=== PATIENT | male | born 1965 | race African-American/Black ===

== ENCOUNTER 2016-12-22 08:47 | Emergency (ER) | payer OTHER, MEDICARE ==
--- NOTE | 2016-12-22 09:36 | ER Document Report ---
ED Medical Screen (RME) - General Chief Complaint: Leg Swelling Stated Complaint: LEG PAIN Time Seen by Provider: 12/22/16 09:34 Mode of Arrival: Ambulatory Information source: Patient Notes: This is a 51-year-old male with a history of CHF, HTN, Gout, A. fib and AICD who is new to the area and presents with bilateral lower extremity pain, from the knees down. He thinks the pain may have started on the RLE, but now it is bilateral. States that this pain is been worsening for the past 1-2 weeks. He is uncertain if this might be gout or circulation problem. Denies any chest pain or shortness of breath. He has had leg swelling. Denies fevers or chills. He is on Eliquis. I have greeted and performed a rapid initial assessment of this patient. A comprehensive ED assessment and evaluation of the patient, analysis of test results and completion of the medical decision making process will be conducted by additional ED providers. TRAVEL OUTSIDE OF THE [place] IN LAST 30 DAYS: No - Related Data Allergies/Adverse Reactions: No Known Allergies Allergy (Unverified 12/22/16 09:29) Past Medical History Renal/ Medical History: Denies: Hx Peritoneal Dialysis Physical Exam - Vital signs Vitals: Temp Pulse Resp BP Pulse Ox 97.5 F 95 20 102/86 H 97 12/22/16 09:04 12/22/16 09:04 12/22/16 09:04 12/22/16 09:04 12/22/16 09:04 - General General appearance: Appears well In distress: None - Cardiovascular Rhythm: Irregularly irregular Course - Vital Signs Vital signs: Temp Pulse Resp BP Pulse Ox 97.5 F 95 20 102/86 H 97 12/22/16 09:04 12/22/16 09:04 12/22/16 09:04 12/22/16 09:04 12/22/16 09:04
[2016-12-22 10:18] LABS: ABSOLUTE BASOPHILS # (AUTO) 0.1 10^3/uL (0.0-0.2); ABSOLUTE EOSINOPHILS # (AUTO) 0.2 10^3/uL (0.0-0.6); ABSOLUTE MONOCYTES (AUTO) 0.7 10^3/uL (0.1-1.4); ABSOLUTE NEUT (AUTO) 3.1 10^3/uL (1.7-8.2); EOSINOPHILS % (AUTO) 3.4 % (0-6); HEMATOCRIT 51.1 % (37.9-51.0); HEMOGLOBIN 16.7 g/dL (13.5-17.0); MEAN CORPUSCULAR HEMOGLOBIN 29.3 pg (27.0-33.4); MEAN CORPUSCULAR HGB CONC 32.7 g/dL (32.0-36.0); MEAN CORPUSCULAR VOLUME 90 fl (80-97); MONOCYTES % (AUTO) 11.6 % (3-13); RED BLOOD COUNT 5.69 10^6/uL (4.35-5.55); RED CELL DISTRIBUTION WIDTH 14.7 % (11.5-14.0)
[2016-12-22 10:22] LABS: PROTHROMBIN TIME 13.7 SEC (11.4-15.4)
[2016-12-22 10:23] LABS: PARTIAL THROMBOPLASTIN TIME 30.1 SEC (23.5-35.8)
[2016-12-22 10:26] LABS: ALANINE AMINOTRANSFERASE 34 U/L (21-72); ALBUMIN 4.4 g/dL (3.5-5.0); ALKALINE PHOSPHATASE 58 U/L (38-126); ANION GAP 16 (5-19); ASPARTATE AMINO TRANSFERASE 20 U/L (17-59); BILIRUBIN,DIRECT 0.3 mg/dL (0.0-0.4); BILIRUBIN,TOTAL 1.6 mg/dL (0.2-1.3); BLOOD UREA NITROGEN 32 mg/dL (7-20); CALCIUM 9.8 mg/dL (8.4-10.2); CARBON DIOXIDE 26 mmol/L (22-30); CHLORIDE 103 mmol/L (98-107); GLUCOSE 97 mg/dL (75-110); SODIUM 144.5 mmol/L (137-145); TOTAL PROTEIN 7.5 g/dL (6.3-8.2)
--- NOTE | 2016-12-22 10:32 | ER Document Report ---
ED Extremity Problem, Lower - General Chief Complaint: Leg Swelling Stated Complaint: LEG PAIN Time Seen by Provider: 12/22/16 09:34 Mode of Arrival: Ambulatory Notes: Patient is complaining of tightness in both of his lower legs. Although, patient says his primary problem this evening involves his knees, both of which are swollen with apparent effusions, the left worse than the right. Patient says he has a history of gout but knows that is not the problem today because he has not had symptoms like he is currently having until the past couple of weeks. He describes constant discomfort. thinks he has got some bruises on the inner aspects of his left ankle and also more on his right foot. Patient denies any recent injuries. Denies nausea or vomiting or diarrhea. Denies fevers. Patient has a history of gout and is supposed to be taking allopurinol 400 mg twice a day, but says he has not really been taking it close to what he should be taking. In addition, he has colchicine which he takes when needed and also has prednisone that he takes when needed for flaring of his gout. TRAVEL OUTSIDE OF THE [place] IN LAST 30 DAYS: No - Related Data Allergies/Adverse Reactions: No Known Allergies Allergy (Unverified 12/22/16 09:29) Home Medications: Current Home Medications Allopurinol [Zyloprim 100 mg Tablet] 400 mg PO BID 12/22/16 [History] Apixaban [Eliquis 5 mg Tablet] 5 mg PO BID 12/22/16 [History] Atorvastatin Calcium [Lipitor 80 mg Tablet] 80 mg PO QHS 12/22/16 [History] Bumetanide [Bumex 2 mg Tablet] 3 mg PO BID 12/22/16 [History] Buspirone HCl [Buspar 10 mg Tablet] 10 mg PO Q8H PRN 12/22/16 [History] Digoxin [Lanoxin 0.125 mg Tablet] 0.125 mg PO DAILY 12/22/16 [History] Docusate Sodium 100 mg PO BID 12/22/16 [History] Loratadine [Claritin] 10 mg PO DAILY PRN 12/22/16 [History] Melatonin [Melatin] 3 mg PO DAILY 12/22/16 [History] Methimazole [Northyx] 15 mg PO DAILY 12/22/16 [History] Metoprolol Succinate [Toprol Xl] 100 mg PO BID 12/22/16 [History] Pantoprazole Sodium [Protonix] 40 mg PO DAILY 12/22/16 [History] Tamsulosin HCl 1 tab PO DAILY 12/22/16 [History] Trazodone HCl 50 mg PO DAILY PRN 12/22/16 [History] Past Medical History - General Information source: Patient - Social History Smoking Status: Current Every Day Smoker Family History: Reviewed & Not Pertinent Patient has suicidal ideation: No Patient has homicidal ideation: No - Past Medical History Cardiac Medical History: Reports: Hx Atrial Fibrillation, Other - Defibrillator Musculoskeltal Medical History: Reports Hx Gout Review of Systems - Review of Systems Notes: REVIEW OF SYSTEMS: CONSTITUTIONAL : Denies fever. EENT: Denies eye, ear, nose or mouth or throat pain or other symptoms. CARDIOVASCULAR: Denies chest pain. RESPIRATORY: Denies cough, chest congestion, or shortness of breath. GASTROINTESTINAL: Denies abdominal pain or nausea, vomiting, or diarrhea. GENITOURINARY: Denies difficulty or painful urinating, urinary frequency, blood in urine. MUSCULOSKELETAL: Denies back or neck pain. See HPI SKIN: see HPI. NEUROLOGICAL: Denies LOC or altered mental status. Denies headache. Denies sensory loss or motor deficits. ALL OTHER SYSTEMS REVIEWED AND NEGATIVE. Physical Exam - Vital signs Vitals: Temp Pulse Resp BP Pulse Ox 97.5 F 95 20 102/86 H 97 12/22/16 09:04 12/22/16 09:04 12/22/16 09:04 12/22/16 09:04 12/22/16 09:04 Interpretation: Normal - Notes Notes: PHYSICAL EXAMINATION: GENERAL: Well-appearing, in no acute distress. Signs are all normal. HEAD: Atraumatic, normocephalic. NECK: Normal range of motion, supple. LUNGS: Breath sounds clear and equal bilaterally. HEART: Regular rate and rhythm without murmurs. ABDOMEN: Soft, nontender. No guarding or rebound. BACK: No tenderness throughout entire back. EXTREMITIES: Normal range of motion without pain. Both knees have effusions present. Left is worse than the right. Neither of them are tense or painful to press or move so I do not think he requires either of them being aspirated. NEUROLOGICAL: Normal speech, normal gait. Normal sensory, motor, and reflex exams. Awake, alert, and oriented x3. Cranial nerves normal. PSYCH: Normal mood, normal affect. SKIN: Warm, dry, no rashes. Course - Re-evaluation Re-evalutation: 12/22/16 20:38 A lengthy discussion with the patient informing him that he needed to start taking his medications away as prescribed. He needs to get into the [facility] clinic in order to receive ongoing care on a regular basis. Advised him to apply ice packs to the knees. Patient and satisfied that patient does not have any blood clots in either lower extremity. Ultrasound did suggest the possibility of bilateral Serna cysts. - Vital Signs Vital signs: Temp Pulse Resp BP Pulse Ox 97.4 F 79 20 102/68 100 12/22/16 12:22 12/22/16 12:22 12/22/16 12:22 12/22/16 12:22 12/22/16 12:22 - Laboratory Result Diagrams: 12/22/16 09:55 12/22/16 09:55 Laboratory results interpreted by me: 12/22/16 12/22/16 12/22/16 09:55 09:55 09:55 RBC 5.69 H Hct 51.1 H RDW 14.7 H BUN 32 H Creatinine 1.50 H Est GFR ( Amer) 59 L Est GFR (Non-Af Amer) 49 L Uric Acid 13.5 H Total Bilirubin 1.6 H Uric acid of 13.5 noted. Creatinine of 1.5 and BUN of 32 noted. Discharge - Discharge Clinical Impression: Gout Qualifiers: Gout site: knee Gout etiology: idiopathic Chronicity: chronic Presence of tophus: without tophus Condition: Stable Disposition: HOME, SELF-CARE Additional Instructions: Gout You have been diagnosed as having gout. Gout is a problem caused by an excess of uric acid, a natural chemical found in the body. The cause of this disease is unknown. Gout arthritis occurs when crystals of uric acid form in the joints. The big toe is the most common joint involved, but any joint can become affected. Persons with gout may also form uric acid kidney stones, resulting in flank pain and blood in the urine. Nodules of uric acid may form under the skin. The first step of treatment is to decrease the inflammation in the joint with antiinflammatory medication. Medication to lower the uric acid level in the blood may then be prescribed. This medication should be taken regularly, as any sudden change in dosage may provoke an attack of gout. Some foods, such as red meat, can provoke an attack in some gout sufferers. Call the doctor if new symptoms arise, or if you do not improve. Arthritis Your symptoms are due to arthritis. Arthritis is an inflammation of the joints. There are many types -- osteoarthritis (due to "wear and tear"), auto- immmune arthritis (such as rheumatoid, lupus, Lacy's, and others), and crystal -induced arthritis (such as gout and pseudogout). The physician's examination, combined with laboratory tests, will determine the cause of your arthritis. All types of arthritis are treated with antiinflammatory medications. Other medication may be required for special types of arthritis, or if your problem does not respond to the antiinflammatory medicine. Local warmth may be helpful. Move the involved joints through the full range of motion daily. Mild exercise is usually still possible for most persons with arthritis (ask your physician). Swimming provides good exercise without damaging the joints. Contact the physician if you are worsening in any way. You should take her allopurinol 2 times a day, as prescribed. You should take your colchicine twice a day, as well. He may take it up to 4 times a day, if you need it. I recommend that you not take prednisone unless you have an acute clearing up with your gout, with redness, heat, and extreme pain to touch or move. Applying ice packs to the swollen joints. Call the [facility] clinic today to make an appointment for your follow-up recheck of your uric acid level and managing your gout. Oral Narcotic Medication has been prescribed for you for acute flares of your gout. You have been given a prescription for pain control. This medication is a narcotic. It's best taken with food, as nausea can result if taken on an empty stomach. Don't operate machinery or drive within six hours of taking this medication. Do not combine this medicine with alcohol, or with any medication which can cause sedation (such as cold tablets or sleeping pills) unless you get permission from the physician. Narcotics tend to cause constipation. If possible, drink plenty of fluids and eat a diet high in fiber and fruits. FOLLOW-UP CARE: If you have been referred to a physician for follow-up care, call the physician s office for an appointment as you were instructed or within the next two days. If you experience worsening or a significant change in your symptoms, notify the physician immediately or return to the Emergency Department at any time for re-evaluation. Prescriptions: Oxycodone HCl/Acetaminophen [Percocet 5-325 mg Tablet] 1 - 2 tab PO Q4H PRN #20 tablet PRN Reason: Referrals: [facility] [Provider Group] - Follow up as needed
--- NOTE | 2016-12-22 10:35 | EKG REPORT ---
SEVERITY:- ABNORMAL ECG - ATRIAL FIBRILLATION, V-RATE 67-121 CONSIDER POSTERIOR INFARCT NONSPECIFIC REPOL ABNORMALITY, DIFFUSE LEADS : Confirmed by: Jakob Peter 22-Dec-2016 10:34:37
--- NOTE | 2016-12-22 12:12 | RADIOLOGY REPORT (SQ) ---
EXAM DESCRIPTION: VENOUS BILATERAL LOWER COMPLETED DATE/TIME: 12/22/2016 12:04 pm REASON FOR STUDY: Tightness of lower extremity COMPARISON: None. TECHNIQUE: Dynamic and static rodriguez scale and color images acquired of both lower extremity venous sy stems. Selected spectral images acquired with additional compression and augmentation maneuvers. Imag es stored on PACS. LIMITATIONS: None. FINDINGS: RIGHT LEG COMMON FEMORAL AND FEMORAL: Normal phasicity, compression and augmentation. No visualized echogenic m aterial on rodriguez scale. No defects on color images. POPLITEAL: Normal compression and augmentation. No visualized echogenic material on rodriguez scale. No de fects on color images. CALF VESSELS: Normal compression and augmentation. No visualized echogenic material on rodriguez scale. No defects on color image. GSV AND SSV: Normal compression. No visualized echogenic material on rodriguez scale. No defects on color images. ANY DEEP VENOUS INSUFFICIENCY: Not evaluated. ANY EVIDENCE OF POPLITEAL CYST: Popliteal cyst measuring 2.5 x 6 cm. OTHER: No other significant finding. LEFT LEG COMMON FEMORAL AND FEMORAL: Normal phasicity, compression and augmentation. No visualized echogenic m aterial on rodriguez scale. No defects on color images. POPLITEAL: Normal compression and augmentation. No visualized echogenic material on rodriguez scale. No de fects on color images. CALF VESSELS: Normal compression and augmentation. No visualized echogenic material on rodriguez scale. No defects on color images. GSV AND SSV: Normal compression. No visualized echogenic material on rodriguez scale. No defects on color images. ANY DEEP VENOUS INSUFFICIENCY: Not evaluated. ANY EVIDENCE POPLITEAL CYST: Popliteal cyst measuring 1.8 x 3 cm. OTHER: No other significant finding. IMPRESSION: NO EVIDENCE DVT OR SVT IN EITHER LEG. BILATERAL POPLITEAL CYSTS. TECHNICAL DOCUMENTATION: JOB ID: [id number] [employer]- All Rights Reserved
[2016-12-22 12:26] VITALS: BP 102/68
== END 2016-12-22 12:25 | disposition home or self-care (01) ==
LOC: ER 08:47
DX: M1A.0690 Idiopathic chronic gout, unspecified knee, without tophus (tophi) (principal); T50.4X6A Underdosing of drugs affecting uric acid metabolism, initial encounter; Z91.14 Patient's other noncompliance with medication regimen; M25.462 Effusion, left knee; M25.461 Effusion, right knee; I48.91 Unspecified atrial fibrillation; Z95.810 Presence of automatic (implantable) cardiac defibrillator; F17.200 Nicotine dependence, unspecified, uncomplicated
CPT/HCPCS: 36415; 80053; 84550; 85025; 85610; 85730; 93005; 93010; 93970; 99284

== ENCOUNTER 2017-02-12 11:33 | Emergency (ER) | payer OTHER, MEDICARE ==
[2017-02-12] MEDS ORDERED: OXYCODONE-ACETAMINOPHEN 5-325 MG TABLET PO ONE (12:30)
[2017-02-12] MEDS ORDERED: KETOROLAC TROMETHAMINE 60 MG/2 ML SDV IM ONE (12:30)
[2017-02-12] MEDS ORDERED: PREDNISONE 20 MG TABLET PO ONE (12:30)
--- NOTE | 2017-02-12 13:16 | ER Document Report ---
ED General - General Chief Complaint: Foot Pain Stated Complaint: RIGHT FOOT PAIN Time Seen by Provider: 02/12/17 11:52 Mode of Arrival: Ambulatory Information source: Patient Notes: 51-year-old male presents with complaints of gout attack of the right great toe. Patient notes this is happened multiple times in the past, he stopped his allopurinol, patient does not have any pain medication or steroids and requests such. He denies any fevers or chills notes it hurts to ambulate TRAVEL OUTSIDE OF THE [place] IN LAST 30 DAYS: No - HPI Onset: Last week Onset/Duration: Persistent, Worse Quality of pain: Sharp Severity: Mild Pain Level: 1 Associated symptoms: Other Exacerbated by: Movement, Walking Relieved by: Denies Similar symptoms previously: Yes Recently seen / treated by doctor: Yes - Related Data Allergies/Adverse Reactions: No Known Allergies Allergy (Unverified 12/22/16 09:29) Past Medical History - Social History Smoking Status: Never Smoker Cigarette use (# per day): No Chew tobacco use (# tins/day): No Smoking Education Provided: No Frequency of alcohol use: None Drug Abuse: None Family History: Reviewed & Not Pertinent - Past Medical History Cardiac Medical History: Reports: Hx Atrial Fibrillation, Hx Congestive Heart Failure, Hx Hypercholesterolemia, Hx Hypertension Renal/ Medical History: Denies: Hx Peritoneal Dialysis GI Medical History: Reports: Hx Gastroesophageal Reflux Disease Musculoskeltal Medical History: Reports Hx Gout Past Surgical History: Reports: Hx Cardiac Surgery - Defibrillator placement Review of Systems - Review of Systems Notes: REVIEW OF SYSTEMS: CONSTITUTIONAL : Denies fever, chills, or sweats. Denies recent illness. EENT: Denies eye, ear, throat, or mouth pain or symptoms. Denies nasal or sinus congestion or discharge. Denies throat, tongue, or mouth swelling or difficulty swallowing. CARDIOVASCULAR: Denies chest pain. Denies palpitations or racing or irregular heart beat. Denies ankle edema. RESPIRATORY: Denies cough, cold, or chest congestion. Denies shortness of breath, difficulty breathing, or wheezing. GASTROINTESTINAL: Denies abdominal pain or distention. Denies nausea, vomiting , or diarrhea. Denies blood in vomitus, stools, or per rectum. Denies black, tarry stools. Denies constipation. GENITOURINARY: Denies difficulty urinating, painful urination, burning, frequency, blood in urine, or discharge. MUSCULOSKELETAL: Admits to right foot pain SKIN: Denies rash, lesions or sores. HEMATOLOGIC : Denies easy bruising or bleeding. LYMPHATIC: Denies swollen, enlarged glands. NEUROLOGICAL: Denies confusion or altered mental status. Denies passing out or loss of consciousness. Denies dizziness or lightheadedness. Denies headache. Denies weakness or paralysis or loss of use of either side. Denies problems with gait or speech. Denies sensory loss, numbness, or tingling. Denies seizures. PSYCHIATRIC: Denies anxiety or stress. Denies depression, suicidal ideation, or homicidal ideation. ALL OTHER SYSTEMS REVIEWED AND NEGATIVE. Dictation was performed using [employer] voice recognition software PHYSICAL EXAMINATION: GENERAL: Well-appearing, well-nourished and in no acute distress. HEAD: Atraumatic, normocephalic. EYES: Pupils equal round and reactive to light, extraocular movements intact, sclera anicteric, conjunctiva are normal. ENT: Nares patent, oropharynx clear without exudates. Moist mucous membranes. NECK: Normal range of motion, supple without lymphadenopathy LUNGS: Breath sounds clear to auscultation bilaterally and equal. No wheezes rales or rhonchi. HEART: Regular rate and rhythm without murmurs ABDOMEN: Soft, nontender, nondistended abdomen. No guarding, no rebound. No masses appreciated. Musculoskeletal: Tenderness of palpation of the first digit on the right with edema, there is no erythema no warmth to touch NEUROLOGICAL: Cranial nerves grossly intact. Normal speech, normal gait. Normal sensory, motor exams PSYCH: Normal mood, normal affect. SKIN: Warm, Dry, normal turgor, no rashes or lesions noted. Physical Exam - Vital signs Vitals: Temp Pulse Resp BP Pulse Ox 97.5 F 66 16 123/95 H 96 02/12/17 11:42 02/12/17 11:42 02/12/17 11:42 02/12/17 11:42 02/12/17 11:42 Course - Re-evaluation Re-evalutation: 02/12/17 14:05 On palpation the patient is tender he is given Toradol prednisone and pain control and otherwise looks well is in no distress. After performing a Medical Screening Examination, I estimate there is LOW risk for INTRACRANIAL HEMORRHAGE, UNSTABLE SPINE FRACTURE, CENTRAL CORD SYNDROME, CAUDA EQUINA, THORACIC AORTIC DISSECTION, PNEUMOTHORAX, PERFORATED BOWEL, RUPTURED ABDOMINAL AORTIC ANEURYSM, ACUTE TENDON RUPTURE, COMPARTMENT SYNDROME, or OPEN FRACTURE, thus I consider the discharge disposition reasonable. Also, there is no evidence or peritonitis, sepsis, or toxicity. I have reevaluated this patient multiple times and no significant life threatening changes are noted. The patient and I have discussed the diagnosis and risks, and we agree with discharging home to follow-up with their primary doctor with the understanding that symptoms and presentations can change. We also discussed returning to the Emergency Department immediately if new or worsening symptoms occur. We have discussed the symptoms which are most concerning (e.g., bloody stool, fever, changing or worsening pain, vomiting) that necessitate immediate return. - Vital Signs Vital signs: Temp Pulse Resp BP Pulse Ox 97.7 F 58 L 20 130/90 H 98 02/12/17 13:29 02/12/17 13:29 02/12/17 13:29 02/12/17 13:30 02/12/17 13:29 Discharge - Discharge Clinical Impression: Gout attack Qualifiers: Gout site: foot Gout etiology: unspecified cause Laterality: right Qualified Code(s): M10.9 - Gout, unspecified Foot pain Qualifiers: Laterality: right Qualified Code(s): M79.671 - Pain in right foot Condition: Stable Disposition: HOME, SELF-CARE Instructions: Gout (OM), Gout Diet (OM) Additional Instructions: Follow up with your physician tomorrow for further care or return to the ED IMMEDIATELY if symptoms worsen or new concerns occur. If you cannot afford to follow up with your primary care physician a list of low cost clinics have been provided at the end of your discharge papers as well. Prescriptions: Oxycodone HCl [Oxycontin Ir 5 Mg Tablet] 1 - 2 mg PO Q4H PRN #15 tablet PRN Reason: For Pain Prednisone [Deltasone 20 mg Tablet] 3 tab PO DAILY 5 Days
[2017-02-12 13:53] VITALS: BP 130/90
== END 2017-02-12 13:30 | disposition home or self-care (01) ==
LOC: ER 11:33
DX: M10.9 Gout, unspecified (principal); I10 Essential (primary) hypertension; I48.91 Unspecified atrial fibrillation; Z95.810 Presence of automatic (implantable) cardiac defibrillator
CPT/HCPCS: 99283; 96372; J1885; J7512

== ENCOUNTER 2017-03-06 15:56 | Emergency (ER) | payer OTHER, MEDICARE ==
[2017-03-06 16:19] VITALS: BP 110/79
[2017-03-06] MEDS ORDERED: IBUPROFEN 800 MG TABLET PO ONE (16:56)
--- NOTE | 2017-03-06 16:56 | ER Document Report ---
ED Medical Screen (RME) - General Chief Complaint: Knee Pain Stated Complaint: LEFT KNEE PAIN Time Seen by Provider: 03/06/17 16:54 Mode of Arrival: Wheelchair Information source: Patient TRAVEL OUTSIDE OF THE [place] IN LAST 30 DAYS: No - HPI Patient complains to provider of: L knee pain Onset: This morning - pt states he has had pain and swelling in L knee in the past but he has been sitting a lot in the car and pain is worse than usual - Related Data Allergies/Adverse Reactions: No Known Allergies Allergy (Unverified 12/22/16 09:29) Past Medical History - Past Medical History Cardiac Medical History: Reports: Hx Atrial Fibrillation, Hx Congestive Heart Failure, Hx Hypercholesterolemia, Hx Hypertension Renal/ Medical History: Denies: Hx Peritoneal Dialysis GI Medical History: Reports: Hx Gastroesophageal Reflux Disease Musculoskeltal Medical History: Reports Hx Arthritis - gout, Reports Hx Gout Past Surgical History: Reports: Hx Cardiac Surgery - Defibrillator placement Physical Exam - Vital signs Vitals: Temp Pulse Resp BP Pulse Ox 97.3 F 97 18 110/79 96 03/06/17 16:14 03/06/17 16:14 03/06/17 16:14 03/06/17 16:14 03/06/17 16:14 Course - Vital Signs Vital signs: Temp Pulse Resp BP Pulse Ox 97.3 F 97 18 110/79 96 03/06/17 16:14 03/06/17 16:14 03/06/17 16:14 03/06/17 16:14 03/06/17 16:14
--- NOTE | 2017-03-06 17:24 | RADIOLOGY REPORT (SQ) ---
EXAM DESCRIPTION: KNEE LEFT 3 VIEWS COMPLETED DATE/TIME: 03/06/2017 5:10 pm REASON FOR STUDY: L knee pain COMPARISON: None. NUMBER OF VIEWS: Three views. TECHNIQUE: AP, lateral, and sunrise patella radiographic images acquired of the left knee. LIMITATIONS: None. FINDINGS: MINERALIZATION: Normal. BONES: No acute fracture or dislocation. Mild inferior patellofemoral arthrosis. No worrisome bone lesions. JOINT: Moderate effusion. SOFT TISSUES: No soft tissue swelling. No radio-opaque foreign body. OTHER: No other significant finding. IMPRESSION: Moderate effusion.No acute fracture or dislocation. Mild inferior patellofemoral arthro sis. TECHNICAL DOCUMENTATION: JOB ID: [id number] [employer]- All Rights Reserved
--- NOTE | 2017-03-06 19:53 | RADIOLOGY REPORT (SQ) ---
EXAM DESCRIPTION: VENOUS UNILATERAL LOWER COMPLETED DATE/TIME: 03/06/2017 7:26 pm REASON FOR STUDY: pain posterior knee and leg long drive COMPARISON: None. TECHNIQUE: Dynamic and static rodriguez scale and color images acquired of the left leg venous system. Se lected spectral images acquired with additional compression and augmentation maneuvers. The contralat eral common femoral vein and saphenofemoral junction were also imaged. Images stored on PACS. LIMITATIONS: None. FINDINGS: COMMON FEMORAL: Normal phasicity, compression and augmentation. No visualized echogenic ma terial on rodriguez scale. No defects on color images. FEMORAL: Normal compression and augmentation. No visualized echogenic material on rodriguez scale. No defe cts on color images. POPLITEAL: Normal compression, augmentation. No visualized echogenic material on rodriguez scale. No defec ts on color images. CALF VESSELS: Normal compression, augmentation. No visualized echogenic material on rodriguez scale. No de fects on color images. GSV and SSV: Normal compression, augmentation. No visualized echogenic material on rodriguez scale. No def ects on color images. ANY DEEP VENOUS INSUFFICIENCY: Not evaluated. ANY EVIDENCE OF POPLITEAL CYST: Yes, 3.7 x 1.4 x 1.3 cm. OTHER: No other significant finding. CONTRALATERAL COMMON FEMORAL VEIN AND SAPHENOFEMORAL JUNCTION: Normal phasicity, compression and augmentation. No visualized echogenic material on rodriguez scale. No de fects on color images. IMPRESSION: NO EVIDENCE OF DVT OR SVT IN THE LEFT LEG. TECHNICAL DOCUMENTATION: JOB ID: [id number] [employer]- All Rights Reserved
[2017-03-06] MEDS ORDERED: HYDROCODONE/ACETAMINOPHEN 5-325 MG 6 TAB/DSPK PO PRN (20:07)
--- NOTE | 2017-03-06 20:09 | ER Document Report ---
ED Extremity Problem, Lower - General Chief Complaint: Knee Pain Stated Complaint: LEFT KNEE PAIN Time Seen by Provider: 03/06/17 16:54 Mode of Arrival: Wheelchair Information source: Patient Notes: 1-year-old male presents to ED for pain and swelling to his left knee since morning. He states he has had pain and swelling in the knee before but it got better and then today it returned. He states he drove to [place] and back this week. TRAVEL OUTSIDE OF THE [place] IN LAST 30 DAYS: No - HPI Patient complains to provider of: Pain, Swelling Location: Knee Occurred: This morning Onset/Duration: Gradual Quality of pain: Sharp Severity: Severe Pain Level: 5 Recent injury: No Associated symptoms: Painful ambulation Exacerbated by: Movement, Walking Relieved by: Nothing - Related Data Allergies/Adverse Reactions: No Known Allergies Allergy (Unverified 12/22/16 09:29) Past Medical History - General Information source: Patient - Social History Smoking Status: Current Every Day Smoker Cigarette use (# per day): Yes - 5 Cigarettes a day Chew tobacco use (# tins/day): No Smoking Education Provided: Yes - Less than 1 minute Frequency of alcohol use: None Drug Abuse: Marijuana Occupation: disabled Lives with: Family Family History: Hyperlipidemia, Hypertension. denies: CAD, COPD, CVA, DM, Malignancy, Thyroid Disfunction - Past Medical History Cardiac Medical History: Reports: Hx Atrial Fibrillation, Hx Congestive Heart Failure, Hx Hypercholesterolemia, Hx Hypertension Pulmonary Medical History: Reports: None EENT Medical History: Reports: None Endocrine Medical History: Reports: Hx Hyperthyroidism - He states is being treated for hyerthyroid medication. Renal/ Medical History: Reports: None Malignancy Medical History: Reports None GI Medical History: Reports: Hx Gastroesophageal Reflux Disease Musculoskeltal Medical History: Reports Hx Arthritis - gout, Reports Hx Gout, Reports Hx Musculoskeletal Deformity, Reports Hx Musculoskeletal Trauma - Knee and back Skin Medical History: Reports None Psychiatric Medical History: Reports: Hx Anxiety, Hx Depression Traumatic Medical History: Reports: None Infectious Medical History: Reports: None Past Surgical History: Reports: Hx Cardiac Surgery - Defibrillator placement Review of Systems - Review of Systems Constitutional: No symptoms reported EENT: No symptoms reported Cardiovascular: No symptoms reported Respiratory: No symptoms reported Gastrointestinal: No symptoms reported Genitourinary: No symptoms reported Male Genitourinary: No symptoms reported Musculoskeletal: Other - Knee pain and swelling Skin: No symptoms reported Hematologic/Lymphatic: No symptoms reported Neurological/Psychological: No symptoms reported -: Yes All other systems reviewed and negative Physical Exam - Vital signs Vitals: Temp Pulse Resp BP Pulse Ox 97.3 F 97 18 110/79 96 03/06/17 16:14 03/06/17 16:14 03/06/17 16:14 03/06/17 16:14 03/06/17 16:14 Interpretation: Normal - General General appearance: Appears well, Alert - HEENT Head: Normocephalic, Atraumatic Eyes: Normal Pupils: PERRL - Respiratory Respiratory status: No respiratory distress Chest status: Nontender Breath sounds: Normal Chest palpation: Normal - Cardiovascular Rhythm: Regular Heart sounds: Normal auscultation Murmur: No - Abdominal Inspection: Normal Distension: No distension Bowel sounds: Normal Tenderness: Nontender Organomegaly: No organomegaly - Back Back: Normal, Nontender - Extremities General upper extremity: Normal inspection, Nontender, Normal color, Normal ROM , Normal temperature General lower extremity: Normal color, Normal temperature. No: Lor's sign Knee: Tender, Pain with ROM, Patellar tendon intact, Popliteal fossa tender. No : Abrasion, Deformity, Dislocation, Drawer's test instability, Ecchymosis, Instability, Joint effusion, Laceration, Laxity with varus stress, Tender joint line, Unable to bear weight Ankle: Edema Foot: Edema - Neurological Neuro grossly intact: Yes Cognition: Normal Orientation: AAOx4 Ezio Coma Scale Eye Opening: Spontaneous Ezio Coma Scale Verbal: Oriented Ezio Coma Scale Motor: Obeys Commands Fisher Coma Scale Total: 15 Speech: Normal Motor strength normal: LUE, RUE, LLE, RLE Sensory: Normal - Psychological Associated symptoms: Normal affect, Normal mood - Skin Skin Temperature: Warm Skin Moisture: Dry Skin Color: Normal Course - Re-evaluation Re-evalutation: 03/06/17 20:26 Doppler and x-ray of knee showed nothing acute. Patient states she is a patient of the [facility] and has intermittent swelling to both lower extremities. He states his pain is different than normal. Patient treated with ibuprofen in the emergency room and discharged home with a dispense pack of [place] and instructed to follow-up with his [facility] hospital and orthopedics. States she has a cane at home for walking and does not need crutches. - Vital Signs Vital signs: Temp Pulse Resp BP Pulse Ox 97.3 F 97 18 110/79 96 03/06/17 16:14 03/06/17 16:14 03/06/17 16:14 03/06/17 16:14 03/06/17 16:14 - Diagnostic Test Radiology reviewed: Image reviewed, Reports reviewed Discharge - Discharge Clinical Impression: Pain and swelling of left knee Condition: Stable Additional Instructions: You were seen today for pain in the back of your left knee. Your linette Doppler was negative for a DVT or SVT. You appear to have a Serna's cyst. Anti-Inflammatory Medication You have received a prescription for an antiinflammatory agent. This is an excellent, safe drug for pain control. In addition, it has potent antiinflammatory effects which are beneficial, especially in the treatment of injuries, arthritis, or tendonitis. It's best to take this medicine with food. Persons with ulcer disease or allergy to aspirin should notify their physician of this before taking this drug. Take the medication exactly as prescribed. Don't take additional doses unless instructed to do so by your doctor. If you develop wheezing, shortness of breath, hives, faintness, stomach pain, vomiting, or dark black stools, return for re-evaluation at once. Oral Narcotic Medication You have been given a [employer] dispense pack for pain control. This medication is a narcotic. It's best taken with food, as nausea can result if taken on an empty stomach. Don't operate machinery or drive within six hours of taking this medication. Do not combine this medicine with alcohol, or with any medication which can cause sedation (such as cold tablets or sleeping pills) unless you get permission from the physician. Narcotics tend to cause constipation. If possible, drink plenty of fluids and eat a diet high in fiber and fruits. Ice & Elevation Apply ice packs frequently against the painful area. Many different schedules are recommended, such as "20 minutes on, 20 minutes off" or "one hour ice, two hours rest." If you need to work, you may need to go longer between ice treatments. You should plan to have the area ice packed AT LEAST one- fourth of the time. The ice should be applied over the wrap, tape, or splint, or over a layer of cloth -- not directly against the skin. Some ice bags have a built-in cloth and can be put directly on the skin. Your injured part should be elevated as much as possible over the next 48 hours. Try to keep the injury above the level of the heart. Avoid use of the injured area. Elevation and rest will decrease the swelling. FOLLOW-UP CARE: If you have been referred to a physician for follow-up care, call the physician s office for an appointment as you were instructed or within the next two days. If you experience worsening or a significant change in your symptoms, notify the physician immediately or return to the Emergency Department at any time for re-evaluation. Prescriptions: Naproxen 500 mg PO BIDP PRN #10 tablet PRN Reason: Forms: Smoking Cessation Education Referrals: ENRICO ALANIS DO [ACTIVE STAFF] - Follow up as needed
== END 2017-03-06 20:31 | disposition home or self-care (01) ==
LOC: ER 15:56
DX: M25.562 Pain in left knee (principal); M25.462 Effusion, left knee; I10 Essential (primary) hypertension; F17.210 Nicotine dependence, cigarettes, uncomplicated; Z71.6 Tobacco abuse counseling
CPT/HCPCS: 93971; 99284

== ENCOUNTER 2017-04-24 21:55 | Emergency (ER) | payer OTHER, MEDICARE ==
[2017-04-24] MEDS ORDERED: ASPIRIN 81 MG TABLET, CHEWABLE PO ONE (21:58)
--- NOTE | 2017-04-24 22:39 | ER Document Report ---
ED General - General Chief Complaint: Syncope Stated Complaint: EXISTING HEART CONDTION,LOSS OF BODY FUNCTIONS Time Seen by Provider: 04/24/17 22:27 Notes: Patient is 51-year-old male presents with complaints of passing out multiple times and also a sensation as if he cannot get all his urine out and that he is collecting fluid. He does have history of congestive heart failure with a poor ejection fraction of only 20%. He is followed at [facility] for all his cardiology needs. His primary care doctor is the [facility]. Denies any recent fevers or infections. No vomiting. No diarrhea. Says symptoms have been ongoing for several days. He says he has been taking his diuretics. He is on the digoxin. He is on Eliquis. He says he has not missed any dosages of his Eliquis. He does have atrial fibrillation which is chronic for him. Patient says his cardiomyopathy is related to history of previous cocaine abuse. Patient says that he has had cardiac catheterizations performed which were negative. TRAVEL OUTSIDE OF THE [place] IN LAST 30 DAYS: No - Related Data Allergies/Adverse Reactions: No Known Allergies Allergy (Verified 04/24/17 22:13) Past Medical History - Social History Smoking Status: Unknown if Ever Smoked Frequency of alcohol use: None Drug Abuse: None Family History: Hyperlipidemia, Hypertension. denies: CAD, COPD, CVA, DM, Malignancy, Thyroid Disfunction Patient has suicidal ideation: No Patient has homicidal ideation: No - Past Medical History Cardiac Medical History: Reports: Hx Atrial Fibrillation, Hx Congestive Heart Failure, Hx Hypercholesterolemia, Hx Hypertension Endocrine Medical History: Reports: Hx Hyperthyroidism - He states is being treated for hyerthyroid medication. Renal/ Medical History: Denies: Hx Peritoneal Dialysis GI Medical History: Reports: Hx Gastroesophageal Reflux Disease Musculoskeltal Medical History: Reports Hx Arthritis - gout, Reports Hx Gout, Reports Hx Musculoskeletal Deformity, Reports Hx Musculoskeletal Trauma - Knee and back Psychiatric Medical History: Reports: Hx Anxiety, Hx Depression Past Surgical History: Reports: Hx Cardiac Surgery - Defibrillator placement Review of Systems - Review of Systems Notes: My Normal Review Basic REVIEW OF SYSTEMS: CONSTITUTIONAL : Denies fever, chills, or sweats. Denies recent illness. EENT: Denies eye, ear, throat, or mouth pain or symptoms. Denies nasal or sinus congestion. CARDIOVASCULAR: Denies chest pain. Some shortness of breath. History of CHF. Some fluid retention. RESPIRATORY: Denies cough, cold, or chest congestion. Denies shortness of breath, difficulty breathing, or wheezing. GASTROINTESTINAL: Denies abdominal pain. Denies nausea, vomiting, or diarrhea. MUSCULOSKELETAL: Denies neck or back pain or joint pain or swelling. SKIN: Denies rash or skin lesions. NEUROLOGICAL: Denies altered mental status or loss of consciousness. Denies headache. Denies weakness or paralysis or loss of use of either side. Denies problems with gait or speech. Denies sensory or motor loss. ALL OTHER SYSTEMS REVIEWED AND NEGATIVE. Physical Exam - Vital signs Vitals: Temp Pulse Resp Pulse Ox 97.8 F 93 16 98 04/24/17 22:21 04/24/17 22:21 04/24/17 22:21 04/24/17 22:21 - Notes Notes: General Appearance: Well nourished, alert, cooperative, no acute distress, no obvious discomfort. Vitals: reviewed, See vital signs table. Head: no swelling or tenderness to the head Eyes: PERRL, EOMI, Conjuctiva clear Mouth: No decreasd moisture Throat: No tonsillar inflammation, No airway obstruction, No lymphadenopathy Neck: Supple, no neck tenderness, No thyromegaly Lungs: No wheezing, No rales, No rhonci, No accessory muscle use, good air exchange bilaterally. Heart: Normal rate, Regular rythm, No murmur, no rub Abdomen: Normal BS, soft, No rigidity, No abdominal tenderness, No guarding, no rebound, no abdominal masses, no organomegaly Extremities: strength 5/5 in all extremities, good pulses in all extremities, no swelling or tenderness in the extremities, no edema. Skin: warm, dry, appropriate color, no rash Neuro: speech clear, oriented x 3, normal affect, responds appropriately to questions. Course - Re-evaluation Re-evalutation: 04/25/17 00:25 Patient was hypotensive and therefore I have given him a slow 500 mL fluid bolus. I do not want to give him too much fluids being that he has poor ejection fraction or has some fluid overload the subcutaneous tissues of his abdomen. His lung mcgraw are clear currently and his chest x-ray does not show a lot of edema. His heart rate is still elevated. I am waiting to hear back from his morgue librarian at [facility] [place]. Internal determine whether or not they want me to cardiovert him being that he is anticoagulated. I am holding off on cardioversion at this moment because I am not familiar with the type of the ICD has. He says it is a wireless AICD and I want to make sure that cardio version will not affect this type of AICD. Also I could potentially give him dig. He is already on did space stitch that was low at 0.47. I will start him on a low Cardizem drip in the meantime being that his blood pressures normalized. I have placed a central line in case we have to give him dobutamine or another kind of pressor. I am waiting to hear back from [facility] [place] at this time. 04/25/17 00:[address] Curtis, computer analyst supervisor at [facility]. He recommends that I attempt to cardiovert the patient. He then wants me to call him back after cardioversion attempt. - Vital Signs Vital signs: Temp Pulse Resp BP Pulse Ox 98.1 F 93 29 H 88/73 L 97 04/25/17 03:21 04/24/17 22:21 04/25/17 03:21 04/25/17 03:21 04/25/17 03:21 - Laboratory Result Diagrams: 04/24/17 22:44 04/24/17 22:44 Laboratory results interpreted by me: 04/24/17 04/24/17 04/24/17 22:44 22:44 22:44 RDW 16.9 H PT 15.6 H Carbon Dioxide 31 H BUN 41 H Creatinine 2.29 H Est GFR ( Amer) 36 L Est GFR (Non-Af Amer) 30 L Glucose 132 H Total Bilirubin 3.5 H Direct Bilirubin 0.9 H Creatine Kinase 250 H NT-Pro-B Natriuret Pep Digoxin 0.47 L 04/24/17 22:44 RDW PT Carbon Dioxide BUN Creatinine Est GFR ( Amer) Est GFR (Non-Af Amer) Glucose Total Bilirubin Direct Bilirubin Creatine Kinase NT-Pro-B Natriuret Pep 5970 H Digoxin - EKG Interpretation by Me Additional EKG results interpreted by me: 04/25/17 00:31 EKG is reviewed and interpreted by me. EKG shows A. fib with rate of [address] segment elevation or depression. No ischemic T-wave inversions. QRS duration is within normal range. QTc interval is prolonged. Old EKG for comparison is from December 22, 2016. 04/25/17 01:17 EKG #2 is reviewed and interpreted by me. EKG shows sinus arrhythmia with occasional PVC. PA interval is within normal range. QRS duration is within normal range. QTc interval is prolonged. Patient has occasional PVCs. No ST segment elevation or depression. Procedures - Central Line Right Femoral Consent obtained: Yes Central line pre-insertion: Chloraprep applied Central line lumen type: Triple Anesthetic type: 1% Lidocaine mL's of anesthesia: 5 Ultrasound guided: Yes Line secured with sutures: Yes Central line post-insertion: Blood return from lumens, Biopatch applied, Sutured , Sterile dressing applied Number of attempts: 1 Complications: No - Conscious Sedation Conscious sedation Consent obtained: Yes Prior complications: Procedural sedation Pt with a severe systemic disease.: P3. - ASA Classification. Airway Evaluation: Large tongue Mallampati Classification: Class 2 Used during procedure: Suction available, IV access obtained, Pulse ox on pt., classroom monitor on pt. Medications administered: Etomidate I personally performed/intraservice time: 30 min or less Complications: Yes - Patient had some tremors post etomidate. - Additional Procedures cardioversion Additional Procedures: Cardioversion/defib Notes: 04/25/17 01:15 Pads were placed in the patient. He was given 5 mg of etomidate. He was still awake. He was given another 2-1/2 mg of etomidate. After the 2.5 milligrams were given he was sleepy. He was cardioverted. He cardioverted to sinus rhythm on the first attempt. EKG shows sinus rhythm with occasional PVCs. Critical Care Note - Critical Care Note Total time excluding time spent on procedures (mins): 65 Comments: Critical care time for this patient not including time spent on procedures approximately 6 5 minutes due to frequent re-evaluations, management of hypertension, management of A. fib, discussion with specialist.
[2017-04-24 22:57] LABS: ABSOLUTE BASOPHILS # (AUTO) 0.1 10^3/uL (0.0-0.2); ABSOLUTE LYMPHOCYTES (AUTO) 2.1 10^3/uL (0.5-4.7); ABSOLUTE MONOCYTES (AUTO) 0.8 10^3/uL (0.1-1.4); ABSOLUTE NEUT (AUTO) 6.9 10^3/uL (1.7-8.2); BASOPHILS % (AUTO) 0.8 % (0-2); EOSINOPHILS % (AUTO) 0.4 % (0-6); HEMATOCRIT 46.7 % (37.9-51.0); HEMOGLOBIN 15.8 g/dL (13.5-17.0); HGB HCT DIFFERENCE 0.7; MEAN CORPUSCULAR HEMOGLOBIN 30.8 pg (27.0-33.4); MEAN CORPUSCULAR HGB CONC 33.9 g/dL (32.0-36.0); MEAN CORPUSCULAR VOLUME 91 fl (80-97); MONOCYTES % (AUTO) 7.9 % (3-13); RED BLOOD COUNT 5.13 10^6/uL (4.35-5.55); RED CELL DISTRIBUTION WIDTH 16.9 % (11.5-14.0); SEGMENTED NEUTROPHILS % (AUTO) 69.9 % (42-78); WHITE BLOOD COUNT 9.9 10^3/uL (4.0-10.5)
--- NOTE | 2017-04-24 23:05 | EKG REPORT ---
SEVERITY:- ABNORMAL ECG - ATRIAL FIBRILLATION, V-RATE 87-170 PAIRED VENTRICULAR PREMATURE COMPLEXES ABERRANT COMPLEX, POSSIBLY SUPRAVENTRICULAR BORDERLINE LEFT AXIS DEVIATION PROLONGED QT INTERVAL : Confirmed by: Jakob Peter 24-Apr-2017 23:05:18
[2017-04-24 23:07] LABS: PROTHROMBIN TIME 15.6 SEC (11.4-15.4)
[2017-04-24 23:26] LABS: ALANINE AMINOTRANSFERASE 38 U/L (21-72); ALBUMIN 4.2 g/dL (3.5-5.0); ALKALINE PHOSPHATASE 52 U/L (38-126); ANION GAP 11 (5-19); ASPARTATE AMINO TRANSFERASE 25 U/L (17-59); BILIRUBIN,DIRECT 0.9 mg/dL (0.0-0.4); BILIRUBIN,TOTAL 3.5 mg/dL (0.2-1.3); BLOOD UREA NITROGEN 41 mg/dL (7-20); CARBON DIOXIDE 31 mmol/L (22-30); CHLORIDE 98 mmol/L (98-107); CREATINE KINASE 250 U/L (55-170); CREATININE RESULT 2.29 mg/dL (0.52-1.25); DIGOXIN 0.47 ng/mL (0.8-2.0); GLUCOSE 132 mg/dL (75-110); POTASSIUM 3.6 mmol/L (3.6-5.0); SODIUM 139.6 mmol/L (137-145); TOTAL PROTEIN 6.7 g/dL (6.3-8.2)
[2017-04-24] MEDS ORDERED: NORMAL SALINE 500 ML IV ONE (23:28)
--- NOTE | 2017-04-24 23:30 | RADIOLOGY REPORT (SQ) ---
EXAM DESCRIPTION: CHEST SINGLE VIEW COMPLETED DATE/TIME: 04/24/2017 10:56 pm REASON FOR STUDY: cp COMPARISON: None. NUMBER OF VIEWS: One view. TECHNIQUE: Single frontal radiographic view of the chest acquired. LIMITATIONS: None. FINDINGS: LUNGS AND PLEURA: No acute opacities, masses or pneumothorax. No consolidation or pleural effusion. MEDIASTINUM AND HILAR STRUCTURES: Enlarged contours. HEART AND VASCULAR STRUCTURES: Heart enlarged with inferior single lead cardiac defibrillator . BONES: No acute findings. OTHER: No other significant finding. IMPRESSION: No acute pulmonary findings.Heart enlarged with inferior single lead cardiac defibrillat or . TECHNICAL DOCUMENTATION: JOB ID: [id number] [employer]- All Rights Reserved
[2017-04-24 23:35] LABS: CREATINE KINASE MB 3.68 ng/mL (<4.55)
[2017-04-24 23:52] LABS: TROPONIN I 0.062 ng/mL
[2017-04-24 23:54] LABS: THYROID STIMULATING HORMONE 1.39 uIU/mL (0.47-4.68)
[2017-04-25] MEDS ORDERED: DILTIAZEM HCL/D5W 125 MG/125 ML RTUINJ IV PRN (00:23)
[2017-04-25] MEDS ORDERED: ETOMIDATE INJ/PF 20 MG/10 ML SDV IV ONE ×2 (00:53→00:57)
[2017-04-25] MEDS ORDERED: NORMAL SALINE 250 ML IV ONE (03:27)
--- NOTE | 2017-04-25 10:58 | ER Document Report ---
Doctor's Note Notes: 04/25/17 10:58 Patient stable for transfer and has been examined
[2017-04-25 11:12] VITALS: BP 127/84
--- NOTE | 2017-04-25 14:32 | EKG REPORT ---
SEVERITY:- ABNORMAL ECG - SINUS RHYTHM MULTIFORM VENTRICULAR PREMATURE COMPLEXES LEFT ATRIAL ABNORMALITY LEFT AXIS DEVIATION BORDERLINE ST DEPRESSION, LATERAL LEADS BORDERLINE PROLONGED QT INTERVAL : Confirmed by: Gaye Richey MD 25-Apr-2017 14:31:47
== END 2017-04-25 11:17 | disposition short-term general hospital (02) ==
LOC: ER 21:55
PROC: 06HM33Z Insertion of Infusion Device into Right Femoral Vein, Percutaneous Approach (ICD-10-PCS; principal; 2017-04-24)
PROC: 5A2204Z Restoration of Cardiac Rhythm, Single (ICD-10-PCS; 2017-04-24)
DX: I50.9 Heart failure, unspecified (principal); I48.91 Unspecified atrial fibrillation; I95.9 Hypotension, unspecified; R55 Syncope and collapse; E78.00 Pure hypercholesterolemia, unspecified; I11.0 Hypertensive heart disease with heart failure; Z79.02 Long term (current) use of antithrombotics/antiplatelets; Z95.810 Presence of automatic (implantable) cardiac defibrillator
CPT/HCPCS: 93005 ×2; 99291; 96360; 96361; 99152; 36415; 84439; 82553; 82550; 80162; 84443; 85025; 85610; 80053; 84484; 83880; 71010; 93010 ×2; 36556; 92960; C1751; J7040

== ENCOUNTER 2017-07-17 04:29 | Emergency (ER) | payer OTHER, MEDICARE ==
--- NOTE | 2017-07-17 05:01 | ER Document Report ---
ED Respiratory Problem - General Chief Complaint: Shortness Of Breath Stated Complaint: TROUBLE BREATHING Time Seen by Provider: 07/17/17 04:53 Notes: Patient is a 51-year-old male that comes emergency department for chief complaint of shortness of breath. He states that he cannot even walk a short distance without having difficulty breathing, he cannot lie flat. He denies cough, fever, chest pain. He states he feels that he has put on weight. Past medical history of CHF, on 60 mg torsemide twice a day. Also has a history of pacemaker/defibrillator, atrial fibrillation, on Eliquis, states that he believes he got CHF from former drug use, denies any drug use in a long time. Former smoker. He follows with the [employer] system. He states he is compliant with his medications. TRAVEL OUTSIDE OF THE [place] IN LAST 30 DAYS: No - Related Data Allergies/Adverse Reactions: No Known Allergies Allergy (Verified 07/17/17 04:31) Past Medical History - General Information source: Patient - Social History Smoking Status: Former Smoker Frequency of alcohol use: None Drug Abuse: None Lives with: Family Family History: Hyperlipidemia, Hypertension. denies: CAD, COPD, CVA, DM, Malignancy, Thyroid Disfunction - Past Medical History Cardiac Medical History: Reports: Hx Atrial Fibrillation, Hx Congestive Heart Failure, Hx Hypercholesterolemia, Hx Hypertension Endocrine Medical History: Reports: Hx Hyperthyroidism - He states is being treated for hyerthyroid medication. Renal/ Medical History: Denies: Hx Peritoneal Dialysis GI Medical History: Reports: Hx Gastroesophageal Reflux Disease Musculoskeltal Medical History: Reports Hx Arthritis - gout, Reports Hx Gout, Reports Hx Musculoskeletal Deformity, Reports Hx Musculoskeletal Trauma - Knee and back Psychiatric Medical History: Reports: Hx Anxiety, Hx Depression Past Surgical History: Reports: Hx Cardiac Surgery - Defibrillator placement Review of Systems - Review of Systems Constitutional: No symptoms reported EENT: No symptoms reported Cardiovascular: See HPI Respiratory: No symptoms reported Gastrointestinal: No symptoms reported Genitourinary: See HPI Male Genitourinary: No symptoms reported Musculoskeletal: No symptoms reported Skin: No symptoms reported Hematologic/Lymphatic: No symptoms reported Neurological/Psychological: No symptoms reported Physical Exam - Vital signs Vitals: Temp Pulse Resp BP Pulse Ox 97.5 F 55 L 20 115/88 H 97 07/17/17 04:47 07/17/17 04:47 07/17/17 04:47 07/17/17 04:47 07/17/17 04:47 Interpretation: Normal - General General appearance: Appears well, Alert In distress: None - HEENT Head: Normocephalic, Atraumatic Eyes: Normal Pupils: PERRL - Respiratory Respiratory status: No respiratory distress. No: Respiratory distress, Labored Chest status: Nontender Breath sounds: Normal. No: Decreased air movement, Nonproductive cough, Wheezing Chest palpation: Normal - Cardiovascular Rhythm: Irregularly irregular Heart sounds: S1 appreciated, S2 appreciated Murmur: No - Abdominal Inspection: Normal Distension: No distension Bowel sounds: Normal Tenderness: Nontender Organomegaly: No organomegaly - Back Back: Normal, Nontender - Extremities General upper extremity: Normal inspection, Nontender, Normal color, Normal ROM , Normal temperature General lower extremity: Normal inspection, Nontender, Normal color, Normal ROM , Normal temperature, Normal weight bearing. No: Edema - Neurological Neuro grossly intact: Yes Cognition: Normal Orientation: AAOx4 [place] Coma Scale Eye Opening: Spontaneous Ezio Coma Scale Verbal: Oriented Ezio Coma Scale Motor: Obeys Commands Ezio Coma Scale Total: 15 Speech: Normal Motor strength normal: LUE, RUE, LLE, RLE Sensory: Normal - Psychological Associated symptoms: Normal affect, Normal mood - Skin Skin Temperature: Warm Skin Moisture: Dry Skin Color: Normal Course - Re-evaluation Re-evalutation: 07/17/17 EKG showing atrial fibrillation at a rate of 108 with borderline prolonged QT interval at 483. No T-wave inversions in consecutive leads or ST segment changes. Patient has a history of chronic atrial fibrillation, rhythm and atrial fibrillation, no A. fib with RVR, averaging in the 90s. Lungs clear on auscultation. Patient speaking in full sentences, no lower extremity edema, clear lungs on auscultation. No hypoxia. CBC unremarkable. Chemistry generally unremarkable with improved kidney function compared to prior , troponin 0 0.04 which is better than previous baseline, BNP is actually lower than previous baseline. Discussed with patient. He states he feels like he is not voiding well, has a known history of BPH, he is not on Flomax but he used to be. He states he was taken off because he was not having trouble but now he is having more trouble than usual and he feels like the voiding is making him retain some fluids. Patient given a dose of Flomax, dose of Lasix, he will be prescribed Flomax to be taking again, he will follow-up closely with his provider in the next few days. Patient did void, he states that he already feels a lot better. He states that he will return if he worsens including chest pain, difficulty breathing, fever, or any other concerning symptoms. Patient is requesting to leave now and asks for a copy of his labs. - Vital Signs Vital signs: Temp Pulse Resp BP Pulse Ox 97.5 F 55 L 23 H 111/97 H 96 07/17/17 04:47 07/17/17 04:47 07/17/17 06:54 07/17/17 06:54 07/17/17 06:54 - Laboratory Result Diagrams: 07/17/17 05:25 07/17/17 05:25 Laboratory results interpreted by me: 07/17/17 07/17/17 07/17/17 05:25 05:25 05:25 RDW 16.8 H Sodium 145.3 H BUN 28 H Creatinine 2.08 H Est GFR ( Amer) 41 L Est GFR (Non-Af Amer) 34 L Calcium 10.3 H Total Bilirubin 2.2 H Direct Bilirubin 0.5 H NT-Pro-B Natriuret Pep 3760 H Discharge - Discharge Clinical Impression: Dyspnea on exertion Congestive heart failure (CHF) Qualifiers: Congestive heart failure type: combined Congestive heart failure chronicity: chronic Qualified Code(s): I50.42 - Chronic combined systolic (congestive) and diastolic (congestive) heart failure BPH (benign prostatic hyperplasia) Qualifiers: Lower urinary tract symptom presence: symptoms present Lower urinary tract symptom detail: unspecified Qualified Code(s): N40.1 - Benign prostatic hyperplasia with lower urinary tract symptoms Condition: Stable Disposition: HOME, SELF-CARE Additional Instructions: Your workup today does not show pulmonary vascular congestion (fluid on your lungs), labs improved compared to prior, vital signs do not show any concerning new abnormalities. Please fill and take the Flomax as prescribed, he was given a dose of Lasix today as well. Follow-up closely with your provider with your labs from today for additional management. Return if you worsen including difficulty breathing, fevers, chest pain, or any other concerning symptoms. Prescriptions: Tamsulosin HCl [Flomax 0.4 mg Cap.sr] 0.4 mg PO DAILY #30 cap.sr.24h Referrals: DEMARCUS HORNE DO [Primary Care Provider] - Follow up as needed
[2017-07-17 06:00] LABS: ABSOLUTE BASOPHILS # (AUTO) 0.1 10^3/uL (0.0-0.2); ABSOLUTE EOSINOPHILS # (AUTO) 0.1 10^3/uL (0.0-0.6); ABSOLUTE LYMPHOCYTES (AUTO) 1.9 10^3/uL (0.5-4.7); ABSOLUTE MONOCYTES (AUTO) 0.8 10^3/uL (0.1-1.4); ABSOLUTE NEUT (AUTO) 4.8 10^3/uL (1.7-8.2); EOSINOPHILS % (AUTO) 1.7 % (0-6); HEMATOCRIT 41.7 % (37.9-51.0); HEMOGLOBIN 13.9 g/dL (13.5-17.0); MEAN CORPUSCULAR HEMOGLOBIN 30.5 pg (27.0-33.4); MEAN CORPUSCULAR HGB CONC 33.3 g/dL (32.0-36.0); MEAN CORPUSCULAR VOLUME 92 fl (80-97); MONOCYTES % (AUTO) 10.2 % (3-13); RED BLOOD COUNT 4.54 10^6/uL (4.35-5.55); RED CELL DISTRIBUTION WIDTH 16.8 % (11.5-14.0); SEGMENTED NEUTROPHILS % (AUTO) 62.1 % (42-78); WHITE BLOOD COUNT 7.8 10^3/uL (4.0-10.5)
[2017-07-17 06:21] LABS: ALANINE AMINOTRANSFERASE 31 U/L (21-72); ALBUMIN 4.3 g/dL (3.5-5.0); ALKALINE PHOSPHATASE 62 U/L (38-126); ANION GAP 10 (5-19); ASPARTATE AMINO TRANSFERASE 21 U/L (17-59); BILIRUBIN,DIRECT 0.5 mg/dL (0.0-0.4); BILIRUBIN,TOTAL 2.2 mg/dL (0.2-1.3); BLOOD UREA NITROGEN 28 mg/dL (7-20); CALCIUM 10.3 mg/dL (8.4-10.2); CARBON DIOXIDE 30 mmol/L (22-30); CHLORIDE 105 mmol/L (98-107); CREATINE KINASE 128 U/L (55-170); CREATININE RESULT 2.08 mg/dL (0.52-1.25); GLUCOSE 106 mg/dL (75-110); POTASSIUM 4.2 mmol/L (3.6-5.0); SODIUM 145.3 mmol/L (137-145); TOTAL PROTEIN 7.1 g/dL (6.3-8.2)
--- NOTE | 2017-07-17 06:23 | RADIOLOGY REPORT (SQ) ---
EXAM DESCRIPTION: CHEST SINGLE VIEW CLINICAL HISTORY: 51 years, Male, shortness of breath COMPARISON: 04/24/2017. LIMITATIONS: None. FINDINGS: Clear lungs. Moderate-severe enlargement cardiac silhouette. Left inferior cardiac stimulation device and lead. Intact bony thorax. Stable. IMPRESSION: No acute cardiopulmonary findings. Stable cardiac enlargement. 2011 [facility] [employer]- All Rights Reserved
[2017-07-17 06:32] LABS: CREATINE KINASE MB 2.66 ng/mL (<4.55)
[2017-07-17 06:35] LABS: TROPONIN I 0.04 ng/mL
[2017-07-17] MEDS ORDERED: TAMSULOSIN HCL 0.4 MG CAP.SR.24H PO ONE (06:44)
[2017-07-17] MEDS ORDERED: FUROSEMIDE INJ/PF 40 MG/4 ML SDV IV ONE (06:44)
[2017-07-17 07:15] VITALS: BP 106/73
--- NOTE | 2017-07-17 08:42 | EKG REPORT ---
SEVERITY:- ABNORMAL ECG - ATRIAL FIBRILLATION, V-RATE 84-156 BORDERLINE PROLONGED QT INTERVAL : Confirmed by: Jimmie Miranda MD 17-Jul-2017 08:40:48
== END 2017-07-17 06:59 | disposition home or self-care (01) ==
LOC: ER 04:29
DX: I50.42 Chronic combined systolic (congestive) and diastolic (congestive) heart failure (principal); N40.1 Benign prostatic hyperplasia with lower urinary tract symptoms; R06.00 Dyspnea, unspecified; I48.91 Unspecified atrial fibrillation; Z79.01 Long term (current) use of anticoagulants; Z87.891 Personal history of nicotine dependence
CPT/HCPCS: 93005; 99285; 96374; 36415; 82553; 82550; 85025; 80053; 84484; 83880; 71010; 93010; J1940

== ENCOUNTER 2017-07-29 12:05 | Emergency (ER) | payer OTHER, MEDICARE ==
--- NOTE | 2017-07-29 14:22 | ER Document Report ---
ED Medical Screen (RME) - General Chief Complaint: Shortness Of Breath Stated Complaint: BREATHING DIFFICULTY Time Seen by Provider: 07/29/17 14:19 Mode of Arrival: Wheelchair Information source: Patient Notes: 51 yr old male with hx of chf presents with sob I have greeted and performed a rapid initial assessment of this patient. A comprehensive ED assessment and evaluation of the patient, analysis of test results and completion of the medical decision making process will be conducted by additional ED providers. PHYSICAL EXAMINATION: GENERAL: Well-appearing, well-nourished and in no acute distress. HEAD: Atraumatic, normocephalic. EYES: Pupils equal round extraocular movements intact, conjunctiva are normal. ENT: Nares patent NECK: Normal range of motion LUNGS: rales at bases Musculoskeletal: Normal range of motion NEUROLOGICAL: Normal speech, normal gait. PSYCH: Normal mood, normal affect. SKIN: Warm, Dry, normal turgor, no rashes or lesions noted. TRAVEL OUTSIDE OF THE [place] IN LAST 30 DAYS: No - Related Data Allergies/Adverse Reactions: No Known Allergies Allergy (Verified 07/29/17 12:06) Past Medical History - Past Medical History Cardiac Medical History: Reports: Hx Atrial Fibrillation, Hx Congestive Heart Failure, Hx Hypercholesterolemia, Hx Hypertension Endocrine Medical History: Reports: Hx Hyperthyroidism - He states is being treated for hyerthyroid medication. Renal/ Medical History: Denies: Hx Peritoneal Dialysis GI Medical History: Reports: Hx Gastroesophageal Reflux Disease Musculoskeltal Medical History: Reports Hx Arthritis - gout, Reports Hx Gout, Reports Hx Musculoskeletal Deformity, Reports Hx Musculoskeletal Trauma - Knee and back Psychiatric Medical History: Reports: Hx Anxiety, Hx Depression Past Surgical History: Reports: Hx Cardiac Surgery - Defibrillator placement Physical Exam - Vital signs Vitals: Pulse Resp BP Pulse Ox 100 22 H 98/71 L 97 07/29/17 12:19 07/29/17 12:19 07/29/17 12:19 07/29/17 12:19 Course - Vital Signs Vital signs: Temp Pulse Resp BP Pulse Ox 77 22 H 98/71 L 88 L 07/29/17 13:36 07/29/17 12:19 07/29/17 12:19 07/29/17 13:36
--- NOTE | 2017-07-29 14:55 | RADIOLOGY REPORT (SQ) ---
EXAM DESCRIPTION: CHEST PA/LAT COMPLETED DATE/TIME: 07/29/2017 2:41 pm REASON FOR STUDY: sob COMPARISON: 07/17/2017. NUMBER OF VIEWS: Two view. TECHNIQUE: Frontal and lateral radiographic views of the chest acquired. LIMITATIONS: None. FINDINGS: LUNGS AND PLEURA: No opacities, masses or pneumothorax. No pleural effusion. MEDIASTINUM AND HILAR STRUCTURES: No masses. No contour abnormalities. HEART AND VASCULAR STRUCTURES: Heart enlarged without failure. Aorta normal for age. BONES: No acute findings. HARDWARE: Defibrillator. OTHER: No other significant finding. IMPRESSION: CARDIAC ENLARGEMENT WITHOUT FAILURE. TECHNICAL DOCUMENTATION: JOB ID: [id number] [employer]- All Rights Reserved
--- NOTE | 2017-07-29 15:06 | ER Document Report ---
ED General - General Chief Complaint: Shortness Of Breath Stated Complaint: BREATHING DIFFICULTY Time Seen by Provider: 07/29/17 14:19 Mode of Arrival: Wheelchair TRAVEL OUTSIDE OF THE [place] IN LAST 30 DAYS: No - HPI Notes: 51-year-old male with a history of A. fib, CHF, wireless AICD, on Eliquis presents today with complaints shortness of breath and fatigue for the last 2 days. Denies any fevers or chills. Denies any recent URI symptoms. Denies any chest pain, nausea, vomiting, diarrhea, abdominal pain, blurry vision, double vision, loss of vision, testicular pain, rectal pain. Patient sees [facility]. Was diagnosed with A. fib in February 2015. Denies any numbness or tingling down bilateral upper or lower extremities. Denies any pain. Denies any recent trauma. Denies any recent gastrointestinal issues. Patient is concerned about an exacerbation of his CHF. - Related Data Allergies/Adverse Reactions: No Known Allergies Allergy (Verified 07/29/17 12:06) Past Medical History - General Information source: Patient - Social History Smoking Status: Former Smoker Chew tobacco use (# tins/day): No Frequency of alcohol use: None Drug Abuse: None Family History: Hyperlipidemia, Hypertension. denies: CAD, COPD, CVA, DM, Malignancy, Thyroid Disfunction Patient has suicidal ideation: No Patient has homicidal ideation: No - Past Medical History Cardiac Medical History: Reports: Hx Atrial Fibrillation, Hx Congestive Heart Failure, Hx Hypercholesterolemia, Hx Hypertension Endocrine Medical History: Reports: Hx Hyperthyroidism - He states is being treated for hyerthyroid medication. Renal/ Medical History: Denies: Hx Peritoneal Dialysis GI Medical History: Reports: Hx Gastroesophageal Reflux Disease Musculoskeltal Medical History: Reports Hx Arthritis - gout, Reports Hx Gout, Reports Hx Musculoskeletal Deformity, Reports Hx Musculoskeletal Trauma - Knee and back Psychiatric Medical History: Reports: Hx Anxiety, Hx Depression Past Surgical History: Reports: Hx Cardiac Surgery - Defibrillator placement Physical Exam - Vital signs Vitals: Pulse Resp BP Pulse Ox 100 22 H 98/71 L 97 07/29/17 12:19 07/29/17 12:19 07/29/17 12:19 07/29/17 12:19 Interpretation: Tachycardic - Notes Notes: PHYSICAL EXAMINATION: GENERAL: Well-appearing, well-nourished and in no acute distress. HEAD: Atraumatic, normocephalic. EYES: Pupils equal round and reactive to light, extraocular movements intact, sclera anicteric, conjunctiva are normal. ENT: Nares patent, oropharynx clear without exudates. Moist mucous membranes. NECK: Normal range of motion, supple without lymphadenopathy LUNGS: Breath sounds clear to auscultation bilaterally and equal. No wheezes rales or rhonchi. HEART: Regular rate and rhythm without murmurs ABDOMEN: Soft, nontender, nondistended abdomen. No guarding, no rebound. No masses appreciated. Musculoskeletal: Normal range of motion, no pitting or edema. No cyanosis. NEUROLOGICAL: Cranial nerves grossly intact. Normal speech, normal gait. Normal sensory, motor exams PSYCH: Normal mood, normal affect. SKIN: Warm, Dry, normal turgor, no rashes or lesions noted. noted distal pedal edema. +2 distal pulses bilaterally and equally. Course - Re-evaluation Re-evalutation: 07/29/17 18:11 EKG shows A. fib, no STEMI. Awaiting on labs, first set was hydrolyzed 1611- still waiting for lab results. Patient is stable. Consulted with Dr. Gaye Weir, Outplacement Consultant manager occupational, due to wireless implantable device, there is a concern of of his EF along with his stage 3 renal failure. 1929-Dr Weir asked me to call [facility] to transfer patient to their facility. 2029-spoke with Dr. Tone Martinez, gas line servicer on-call at [facility], regarding transfer due to CHF exacerbation as well as stage III renal failure plantable defibrillator/pacemaker. Was accepted at [facility]. Patient made aware and transfer papers initiated. - Vital Signs Vital signs: Temp Pulse Resp BP Pulse Ox 77 20 98/71 L 88 L 07/29/17 13:36 07/29/17 14:09 07/29/17 12:19 07/29/17 13:36 - Laboratory Result Diagrams: 07/29/17 15:18 07/29/17 17:13 Laboratory results interpreted by me: 07/29/17 07/29/17 07/29/17 15:18 16:40 17:13 WBC 11.9 H RDW 17.3 H Absolute Neutrophils 8.7 H BUN Creatinine Est GFR ( Amer) Est GFR (Non-Af Amer) Calcium Magnesium Total Bilirubin Direct Bilirubin Creatine Kinase CK-MB (CK-2) 5.21 H NT-Pro-B Natriuret Pep 5710 H Urine Urobilinogen 2.0 H 07/29/17 17:13 WBC RDW Absolute Neutrophils BUN 48 H Creatinine 2.59 H Est GFR ( Amer) 32 L Est GFR (Non-Af Amer) 26 L Calcium 10.5 H Magnesium 2.5 H Total Bilirubin 5.6 H Direct Bilirubin 1.2 H Creatine Kinase 195 H CK-MB (CK-2) NT-Pro-B Natriuret Pep Urine Urobilinogen - EKG Interpretation by [place] Rhythm: A.Fib - HR 101 [place]/QRS: Left axis deviation Discharge - Discharge Clinical Impression: Stage III renal failure Acute exacerbation of CHF (congestive heart failure) Qualifiers: Congestive heart failure type: unspecified congestive heart failure type Qualified Code(s): I50.9 - Heart failure, unspecified Condition: Good Disposition: [place]
[2017-07-29 16:36] LABS: ABSOLUTE BASOPHILS # (AUTO) 0.1 10^3/uL (0.0-0.2); ABSOLUTE MONOCYTES (AUTO) 1.1 10^3/uL (0.1-1.4); ABSOLUTE NEUT (AUTO) 8.7 10^3/uL (1.7-8.2); BASOPHILS % (AUTO) 0.7 % (0-2); EOSINOPHILS % (AUTO) 0.1 % (0-6); HEMATOCRIT 47.4 % (37.9-51.0); HEMOGLOBIN 15.2 g/dL (13.5-17.0); LYMPHOCYTES % (AUTO) 16.8 % (13-45); MEAN CORPUSCULAR HEMOGLOBIN 30.1 pg (27.0-33.4); MEAN CORPUSCULAR HGB CONC 32.1 g/dL (32.0-36.0); MEAN CORPUSCULAR VOLUME 94 fl (80-97); MONOCYTES % (AUTO) 9.2 % (3-13); PLATELET COUNT 205 10^3/uL (150-450); RED BLOOD COUNT 5.05 10^6/uL (4.35-5.55); RED CELL DISTRIBUTION WIDTH 17.3 % (11.5-14.0); SEGMENTED NEUTROPHILS % (AUTO) 73.2 % (42-78); TOTAL CELLS COUNTED % (AUTO) 100 %; WHITE BLOOD COUNT 11.9 10^3/uL (4.0-10.5)
[2017-07-29 17:51] LABS: ALANINE AMINOTRANSFERASE 67 U/L (21-72); ALBUMIN 4.5 g/dL (3.5-5.0); ALKALINE PHOSPHATASE 70 U/L (38-126); ASPARTATE AMINO TRANSFERASE 58 U/L (17-59); BILIRUBIN,DIRECT 1.2 mg/dL (0.0-0.4); BILIRUBIN,TOTAL 5.6 mg/dL (0.2-1.3); BLOOD UREA NITROGEN 48 mg/dL (7-20); CALCIUM 10.5 mg/dL (8.4-10.2); CREATINE KINASE 195 U/L (55-170); GLUCOSE 106 mg/dL (75-110); MAGNESIUM 2.5 mg/dL (1.6-2.3); TOTAL PROTEIN 6.9 g/dL (6.3-8.2)
[2017-07-29 17:58] LABS: ANION GAP 19 (5-19); CARBON DIOXIDE 22 mmol/L (22-30); CHLORIDE 100 mmol/L (98-107); POTASSIUM 4.6 mmol/L (3.6-5.0); SODIUM 141.2 mmol/L (137-145)
[2017-07-29 18:02] LABS: CREATINE KINASE MB 5.21 ng/mL (<4.55)
[2017-07-29 18:20] LABS: APPEARANCE,URINE SLIGHTLY-CLOUDY; BILIRUBIN,URINE NEGATIVE (NEGATIVE); COLOR,URINE YELLOW; GLUCOSE, URINE NEGATIVE (NEGATIVE); KETONES,URINE NEGATIVE (NEGATIVE); LEUKOCYTE ESTERASE,URINE NEGATIVE (NEGATIVE); NITRITE,URINE NEGATIVE (NEGATIVE); PROTEIN,URINE NEGATIVE (NEGATIVE); URINE SPECIFIC GRAVITY 1.011
[2017-07-29 18:32] LABS: TROPONIN I 0.041 ng/mL
[2017-07-29] MEDS ORDERED: FUROSEMIDE INJ/PF 40 MG/4 ML SDV IV ONE (18:35)
[2017-07-29] MEDS ORDERED: TRAZODONE HCL 50 MG TABLET PO ONE (22:45)
[2017-07-30] MEDS ORDERED: BUSPIRONE HCL 10 MG TABLET PO PRN (05:46)
[2017-07-30] MEDS ORDERED: OXYCODONE-ACETAMINOPHEN 5-325 MG TABLET PO PRN (05:47)
[2017-07-30 06:59] LABS: ANION GAP 15 (5-19); BLOOD UREA NITROGEN 62 mg/dL (7-20); CALCIUM 10.1 mg/dL (8.4-10.2); CARBON DIOXIDE 21 mmol/L (22-30); CHLORIDE 103 mmol/L (98-107); GLUCOSE 104 mg/dL (75-110); POTASSIUM 4.9 mmol/L (3.6-5.0); SODIUM 139.2 mmol/L (137-145)
[2017-07-30 07:09] LABS: TROPONIN I 0.036 ng/mL
--- NOTE | 2017-07-30 09:25 | ER Document Report ---
Doctor's Note Notes: 07/30/17 09:24 This is a 51-year-old man with a history of chronic kidney disease, A. fib ( Eliquis) and cardiomyopathy (pacemaker) who presented to the emergency room with complaints of shortness of breath. He is awaiting transfer to [facility] for CHF in the setting of worsening renal disease. He is alert and oriented 3 at this time and is comfortable but does appear somewhat short of breath. He does not have a list of his updated medicines, we will call pharmacy and attempt to get an updated list. He has received his Eliquis this morning. 07/30/17 09:39 07/30/17 12:29 Note: I was notified by the nurse that the patient did have hypotension after receiving metoprolol. She reported that the blood pressure was as low as 55 systolic at approximately 1030. The patient did receive metoprolol approximately an hour before. Currently, the patient is sitting up in bed, alert and oriented 3, no acute distress. He states he feels fine. He does not complain of any pain. His blood pressure at this moment is 92/68 with a pulse of 100. Patient does report that in cardiac rehab, his blood pressures have been low lately (systolic in the 90s). The plan would be to hold the beta- cat unless his heart rate climbs. 07/30/17 14:35 I discussed the case with the retail product demo specialist at [facility] regarding the patient's tenuous blood pressure. His systolic blood pressure has hovered in the 80s and 90s. Presently, he is alert and oriented 3 and his blood pressure is 91/80 with a pulse of 109. After discussing the case with the retail product demo specialist, we will give the patient his daily dose of spironolactone and amiodarone and I will start some gentle IV diuresis with close attention to the blood pressure. 07/30/17 15:04 I did review the transfer paperwork. It appears that transport is scheduled for approximately 1700 by S truck. My concern is that given his very tenuous blood pressure, the [facility] personnel will not be comfortable transporting him. I have asked the nurse in charge to look into any other transport team including air.
[2017-07-30] MEDS ORDERED: DOCUSATE SODIUM 100 MG CAPSULE PO SCH (10:00)
[2017-07-30] MEDS ORDERED: APIXABAN 5 MG TABLET PO SCH (10:00)
[2017-07-30] MEDS ORDERED: METOPROLOL SUCCINATE 25 MG TAB.SR.24H PO SCH (10:00)
--- NOTE | 2017-07-30 11:37 | EKG REPORT ---
SEVERITY:- ABNORMAL ECG - ATRIAL FIBRILLATION, V-RATE 89-115 BORDERLINE LEFT AXIS DEVIATION NONSPECIFIC T ABNORMALITIES, LATERAL LEADS : Confirmed by: Jakob Peter 30-Jul-2017 11:36:45
[2017-07-30] MEDS ORDERED: IPRATROPIUM/ALBUTEROL 0.5-2.5 MG/3 ML AMPUL NEB ONE (13:53)
[2017-07-30] MEDS ORDERED: FUROSEMIDE INJ/PF 40 MG/4 ML SDV IV ONE (14:33)
[2017-07-30] MEDS ORDERED: SPIRONOLACTONE 25 MG TABLET PO ONE (14:34)
[2017-07-30] MEDS ORDERED: AMIODARONE HCL 200 MG TABLET PO ONE (14:35)
[2017-07-30 15:29] VITALS: BP 99/82
[2017-07-30] MEDS ORDERED: ATORVASTATIN CALCIUM 40 MG TABLET PO SCH (22:00)
== END 2017-07-30 15:30 | disposition short-term general hospital (02) ==
LOC: ER 12:05
DX: N18.3 Chronic kidney disease, stage 3 (moderate) (principal); I50.9 Heart failure, unspecified; R06.02 Shortness of breath; I48.91 Unspecified atrial fibrillation; Z79.01 Long term (current) use of anticoagulants; Z87.891 Personal history of nicotine dependence
CPT/HCPCS: 93005; 96376; 94640; 99285; 96374; 36415; 82553; 82550; 83735; 85025; 80048; 80053; 81001; 84484; 83880; 71046; 93010; 94660; J1940 ×2; J7620

== ENCOUNTER 2018-03-19 11:39 | Emergency (ER) | payer OTHER, MEDICARE ==
[2018-03-19] MEDS ORDERED: NORMAL SALINE 1000 ML 500 ML IV ONE (12:04)
--- NOTE | 2018-03-19 12:55 | RADIOLOGY REPORT (SQ) ---
EXAM DESCRIPTION: CT HEAD WITHOUT COMPLETED DATE/TIME: 03/19/2018 12:41 pm REASON FOR STUDY: lightheadednessleft side COMPARISON: None. TECHNIQUE: Axial images acquired through the brain without intravenous contrast. Images reviewed wi th bone, brain and subdural windows. Additional sagittal and coronal reconstructions were generated. Images stored on PACS. All CT scanners at this facility use dose modulation, iterative reconstruction, and/or weight based d osing when appropriate to reduce radiation dose to as low as reasonably achievable (ALARA). [facility]: Dose Right [facility]: CareDose [facility]: Dose Right [facility]: Teradose 4D [facility]: Smart Wirama RADIATION DOSE: CT Rad equipment meets quality standard of care and radiation dose reduction techniq ues were employed. CTDIvol: 53.2 mGy. DLP: 1070 mGy-cm. mGy. LIMITATIONS: None. FINDINGS: VENTRICLES: Normal size and contour. CEREBRUM: No masses. No hemorrhage. No midline shift. No evidence for acute infarction. Normal gra y/white matter differentiation. No areas of low density in the white matter. CEREBELLUM: No masses. No hemorrhage. No alteration of density. No evidence for acute infarction. EXTRAAXIAL SPACES: No fluid collections. No masses. ORBITS AND GLOBE: No intra- or extraconal masses. Normal contour of globe without masses. CALVARIUM: No fracture. PARANASAL SINUSES: Mucosal nodules in the maxillary sinuses. SOFT TISSUES: No mass or hematoma. OTHER: No other significant finding. IMPRESSION: NORMAL BRAIN CT WITHOUT CONTRAST. EVIDENCE OF ACUTE STROKE: NO. COMMENT: Quality ID # [id number]: Final reports with documentation of one or more dose reduction techniques (e.g., Automated exposure control, adjustment of the mA and/or kV according to patient size, use of iterative reconstruction technique) TECHNICAL DOCUMENTATION: JOB ID: [id number] [employer]- All Rights Reserved Reading location - IP/workstation name: [email or web address]
--- NOTE | 2018-03-19 13:16 | RADIOLOGY REPORT (SQ) ---
EXAM DESCRIPTION: CHEST 2 VIEWS COMPLETED DATE/TIME: 03/19/2018 12:41 pm REASON FOR STUDY: short of breath COMPARISON: 07/29/2017. NUMBER OF VIEWS: Two view. TECHNIQUE: Frontal and lateral radiographic views of the chest acquired. LIMITATIONS: None. FINDINGS: LUNGS AND PLEURA: No opacities, masses or pneumothorax. No pleural effusion. MEDIASTINUM AND HILAR STRUCTURES: No masses. No contour abnormalities. HEART AND VASCULAR STRUCTURES: Heart enlarged without failure. Aorta normal for age. BONES: No acute findings. HARDWARE: Sternotomy wires. Left ventricular assist device. OTHER: No other significant finding. IMPRESSION: CARDIAC ENLARGEMENT WITHOUT FAILURE. TECHNICAL DOCUMENTATION: JOB ID: [id number] [employer]- All Rights Reserved Reading location - IP/workstation name: [email or web address]
[2018-03-19] MEDS ORDERED: ONDANSETRON HCL INJ/PF 4 MG/2 ML SDV IV ONE (13:33)
[2018-03-19] MEDS ORDERED: PROCHLORPERAZINE EDISYLATE INJ 10 MG/2 ML VIAL IV ONE (13:33)
[2018-03-19 13:53] LABS: INTERNATIONAL RATION (INR) 1.63; PROTHROMBIN TIME 20.1 SEC (11.4-15.4)
[2018-03-19 13:54] LABS: HEMATOCRIT 42.7 % (37.9-51.0); HEMOGLOBIN 14.3 g/dL (13.5-17.0); MEAN CORPUSCULAR HEMOGLOBIN 28.5 pg (27.0-33.4); MEAN CORPUSCULAR HGB CONC 33.5 g/dL (32.0-36.0); MEAN CORPUSCULAR VOLUME 85 fl (80-97); PLATELET COUNT 162 10^3/uL (150-450); RED BLOOD COUNT 5.03 10^6/uL (4.35-5.55); RED CELL DISTRIBUTION WIDTH 17.4 % (11.5-14.0)
--- NOTE | 2018-03-19 14:03 | ER Document Report ---
ED Medical Screen (RME) - General Chief Complaint: Shortness Of Breath Stated Complaint: short of breath Time Seen by Provider: 03/19/18 12:03 Mode of Arrival: Wheelchair TRAVEL OUTSIDE OF THE [place] IN LAST 30 DAYS: No - HPI Patient complains to provider of: Fatigue Onset: Other - This is a 52-year-old LVAD patient presents for evaluation of worsening fatigue over the last several days which is been similar previous episodes in which he was dehydrated but also when he was having worsening heart failure. He also endorses some tingling in the face. Has been checking his INR periodically as he is on warfarin at this time and he has been somewhat lower than usual in the 1.5 range it is post to be 2.5-3 for his therapeutic level. - Related Data Allergies/Adverse Reactions: No Known Allergies Allergy (Verified 07/29/17 12:06) Past Medical History - Social History Chew tobacco use (# tins/day): No Frequency of alcohol use: None Drug Abuse: None - Past Medical History Cardiac Medical History: Reports: Hx Atrial Fibrillation, Hx Congestive Heart Failure, Hx Hypercholesterolemia, Hx Hypertension Endocrine Medical History: Reports: Hx Hyperthyroidism - He states is being treated for hyerthyroid medication. Renal/ Medical History: Denies: Hx Peritoneal Dialysis GI Medical History: Reports: Hx Gastroesophageal Reflux Disease Musculoskeltal Medical History: Reports Hx Arthritis - gout, Reports Hx Gout, Reports Hx Musculoskeletal Deformity, Reports Hx Musculoskeletal Trauma - Knee and back Psychiatric Medical History: Reports: Hx Anxiety, Hx Depression Past Surgical History: Reports: Hx Cardiac Surgery - Defibrillator placement Physical Exam - Vital signs Vitals: Temp Pulse Resp BP Pulse Ox 97.8 F 79 20 135/114 H 97 03/19/18 11:52 03/19/18 11:52 03/19/18 11:52 03/19/18 11:52 03/19/18 11:52 Course - Re-evaluation Re-evalutation: 03/19/18 14:02 This 52-year-old man has an LVAD, he is got worsening fatigue, has known failure obviously. He also has some weakness in his left face. We will proceed with broad workup including CT of the head, troponins EKG cardiac monitoring and chest x-ray. Patient to be evaluated dispositioned appropriately through the main emergency department. - Vital Signs Vital signs: Temp Pulse Resp BP Pulse Ox 97.8 F 79 28 H 138/112 H 97 03/19/18 11:52 03/19/18 11:52 03/19/18 13:02 03/19/18 13:02 03/19/18 11:52 - Laboratory Result Diagrams: 03/19/18 13:34 03/19/18 13:34 Laboratory results interpreted by me: 03/19/18 13:34 PT 20.1 H Doctor's Discharge - Discharge Referrals: MAYNOR GEORGE MD [Primary Care Provider] - Follow up as needed
[2018-03-19 14:19] LABS: CREATINE KINASE MB 3.06 ng/mL (<4.55)
[2018-03-19 14:21] LABS: ABSOLUTE LYMPHOCYTES# (MANUAL) 1.8 10^3/uL (0.5-4.7); ABSOLUTE MONOCYTES # (MANUAL) 0.4 10^3/uL (0.1-1.4); ABSOLUTE NEUTROPHILS# (MANUAL) 5.7 10^3/uL (1.7-8.2); BASOPHILS % (MANUAL) 0 % (0-2); EOSINOPHILS % (MANUAL) 1 % (0-6); LYMPHOCYTES % (MANUAL) 23 % (13-45); MONOCYTES % (MANUAL) 5 % (3-13); SEGMENTED NEUTROPHILS % (MAN) 71 % (42-78); TOTAL CELLS COUNTED 100
[2018-03-19 14:22] LABS: ANISOCYTOSIS 1+; PLATELET CLUMPS PRESENT; PLATELET COMMENT ADEQUATE
[2018-03-19 14:24] LABS: TROPONIN I 0.15 ng/mL
[2018-03-19 15:35] LABS: ALANINE AMINOTRANSFERASE 22 U/L (21-72); ALBUMIN 4.1 g/dL (3.5-5.0); ALKALINE PHOSPHATASE 67 U/L (38-126); ANION GAP 12 (5-19); ASPARTATE AMINO TRANSFERASE 19 U/L (17-59); BILIRUBIN,DIRECT 0.4 mg/dL (0.0-0.4); BILIRUBIN,TOTAL 3.1 mg/dL (0.2-1.3); BLOOD UREA NITROGEN 22 mg/dL (7-20); CALCIUM 9.5 mg/dL (8.4-10.2); CARBON DIOXIDE 23 mmol/L (22-30); CHLORIDE 111 mmol/L (98-107); CREATINE KINASE 120 U/L (55-170); GLUCOSE 112 mg/dL (75-110); POTASSIUM 4.2 mmol/L (3.6-5.0); TOTAL PROTEIN 7.3 g/dL (6.3-8.2)
--- NOTE | 2018-03-19 15:58 | ER Document Report ---
ED General - General Chief Complaint: Shortness Of Breath Stated Complaint: short of breath Time Seen by Provider: 03/19/18 12:03 Mode of Arrival: Wheelchair TRAVEL OUTSIDE OF THE [place] IN LAST 30 DAYS: No - HPI Patient complains to provider of: Fatigue shortness of breath Notes: Patient coming in for 2 week history of worsening fatigue and shortness of breath. Patient has an LVAD device placed in due to heart failure secondary to drug abuse in the past. Patient is followed by [facility]. Patient denies any recent changes in his medications. Patient denies any recent travel. Denies any trauma. Patient also complains of left-sided headache started in the last 12 hours. Patient laboratory alert and oriented 3 GCS 15 complaining of noted unilateral weakness. States generalized fatigue. His symptoms previous to when he has been dehydrated in the past. Denies any fevers chills nausea vomiting diarrhea - Related Data Allergies/Adverse Reactions: No Known Allergies Allergy (Verified 07/29/17 12:06) Past Medical History - Social History Smoking Status: Former Smoker Chew tobacco use (# tins/day): No Frequency of alcohol use: None Drug Abuse: None Family History: Hyperlipidemia, Hypertension. denies: CAD, COPD, CVA, DM, Malignancy, Thyroid Disfunction Patient has suicidal ideation: No Patient has homicidal ideation: No - Past Medical History Cardiac Medical History: Reports: Hx Atrial Fibrillation, Hx Congestive Heart Failure, Hx Hypercholesterolemia, Hx Hypertension Endocrine Medical History: Reports: Hx Hyperthyroidism - He states is being treated for hyerthyroid medication. Renal/ Medical History: Denies: Hx Peritoneal Dialysis GI Medical History: Reports: Hx Gastroesophageal Reflux Disease Musculoskeletal Medical History: Reports Hx Arthritis - gout, Reports Hx Gout, Reports Hx Musculoskeletal Deformity, Reports Hx Musculoskeletal Trauma - Knee and back Psychiatric Medical History: Reports: Hx Anxiety, Hx Depression Past Surgical History: Reports: Hx Cardiac Surgery - Defibrillator placement Review of Systems - Review of Systems Constitutional: Weakness - Shortness of breath EENT: No symptoms reported Cardiovascular: No symptoms reported Respiratory: No symptoms reported Gastrointestinal: No symptoms reported Genitourinary: No symptoms reported Male Genitourinary: No symptoms reported Musculoskeletal: No symptoms reported Skin: No symptoms reported Hematologic/Lymphatic: No symptoms reported Neurological/Psychological: No symptoms reported -: Yes All other systems reviewed and negative Physical Exam - Vital signs Vitals: Temp Pulse Resp BP Pulse Ox 97.8 F 79 20 135/114 H 97 03/19/18 11:52 03/19/18 11:52 03/19/18 11:52 03/19/18 11:52 03/19/18 11:52 Interpretation: Normal - General General appearance: Appears well, Alert - HEENT Head: Normocephalic, Atraumatic Eyes: Normal Pupils: PERRL - Respiratory Respiratory status: No respiratory distress Chest status: Nontender Breath sounds: Normal Chest palpation: Normal - Cardiovascular Rhythm: Irregularly irregular Heart sounds: No: Normal auscultation - Mechanical heart sounds Murmur: No - Abdominal Inspection: No: Normal - Drive lines are in place no signs of infection Distension: No distension Bowel sounds: Normal Tenderness: Nontender Organomegaly: No organomegaly - Back Back: Normal, Nontender - Extremities General upper extremity: Normal inspection, Nontender, Normal color, Normal ROM , Normal temperature General lower extremity: Normal inspection, Nontender, Normal color, Normal ROM , Normal temperature, Normal weight bearing. No: Lor's sign - Neurological Neuro grossly intact: Yes Cognition: Normal Orientation: AAOx4 Vulcan Coma Scale Eye Opening: Spontaneous Vulcan Coma Scale Verbal: Oriented Ezio Coma Scale Motor: Obeys Commands Ezio Coma Scale Total: 15 Speech: Normal Motor strength normal: LUE, RUE, LLE, RLE Sensory: Normal - Psychological Associated symptoms: Normal affect, Normal mood - Skin Skin Temperature: Warm Skin Moisture: Dry Skin Color: Normal Course - Re-evaluation Re-evalutation: 03/19/18 15:57 Patient coming in for worsening weakness and fatigue. Patient was given some IV fluids here in the ER. Patient did urinate while here unfortunately was unable to get urine for a urinalysis. Laboratory studies at this time show troponin 0 0.15 would repeat decreasing to 0.13. Chest x-ray does not show any signs of failure. BNP is actually the lowest it has been trending in the last few years. Patient has been able to ambulate to and fro no signs of distress. Multiple evaluation patient states that he has fine feeling better requesting to be discharged home. At this time laboratory values have just recently returned we will contact his LVAD coordinator and LVAD team at [facility] - Vital Signs Vital signs: Temp Pulse Resp BP Pulse Ox 97.8 F 79 32 H 123/111 H 96 03/19/18 11:52 03/19/18 11:52 03/19/18 16:00 03/19/18 14:05 03/19/18 16:00 - Laboratory Result Diagrams: 03/19/18 13:34 03/19/18 14:52 Laboratory results interpreted by me: 03/19/18 03/19/18 03/19/18 13:34 13:34 13:34 RDW 17.4 H PT 20.1 H Sodium Chloride BUN Glucose Total Bilirubin NT-Pro-B Natriuret Pep 2600 H 03/19/18 14:52 RDW PT Sodium 146.0 H Chloride 111 H BUN 22 H Glucose 112 H Total Bilirubin 3.1 H NT-Pro-B Natriuret Pep Discharge - Discharge Clinical Impression: History of left ventricular assist device (LVAD) Dyspnea Qualifiers: Dyspnea type: unspecified Qualified Code(s): R06.00 - Dyspnea, unspecified Atrial fibrillation Qualifiers: Atrial fibrillation type: unspecified Qualified Code(s): I48.91 - Unspecified atrial fibrillation Headache Qualifiers: Headache type: unspecified Headache chronicity pattern: unspecified pattern Intractability: not intractable Qualified Code(s): R51 - Headache Fatigue Qualifiers: Fatigue type: unspecified Qualified Code(s): R53.83 - Other fatigue Condition: Good Instructions: Headache ([facility]) Additional Instructions: At this time her chest x-ray laboratory studies EKG did not show any acute findings. Your EKG does show atrial fibrillation. Your chest x-ray does not show any signs of heart failure or fluid overload. Your INR was subtherapeutic at 1.6. I have discussed your findings in your case with the LVAD coordinator nurse practitioner Julio. At this time recommend continue with your Coumadin dose of 6 mg. Continue your home medications as prescribed. LVAD coordinator will call you tomorrow and they will try to schedule you an earlier follow-up appointment. Otherwise her vital signs showed no acute pathology no signs of oxygen the reasoning for your symptoms. Please make sure you follow-up with her doctors. Return to the ER if any symptoms worsen. CT scan does not show any acute findings for your headache. Your headache was resolved with the Zofran and Compazine I will give the prescriptions. Please take 5 mg of Compazine along with 4 mg of Zofran he can do this every 6 hours. Prescriptions: Ondansetron HCl [Zofran 4 mg Tablet] 1 - 2 tab PO Q6 #30 tablet Prochlorperazine Maleate [Compazine] 5 mg PO Q6 #30 tablet Referrals: MAYNOR GEORGE MD [Primary Care Provider] - Follow up as needed
[2018-03-19] MEDS ORDERED: ONDANSETRON 4 MG TAB.RAPDIS PO ONE (16:22)
[2018-03-19] MEDS ORDERED: PROCHLORPERAZINE MALEATE 10 MG TABLET PO ONE (16:22)
[2018-03-19 17:15] VITALS: BP 156/129
--- NOTE | 2018-03-20 07:41 | EKG REPORT ---
SEVERITY:- ABNORMAL ECG - ATRIAL FIBRILLATION, V-RATE 91-149 MULTIFORM VENTRICULAR PREMATURE COMPLEXES ABNORMAL T, CONSIDER ISCHEMIA, LATERAL LEADS, NEW , COMPARED TO 07/29/17 EKG PROLONGED QT INTERVAL : Confirmed by: Jimmie Miranda MD 20-Mar-2018 07:40:44
== END 2018-03-19 17:17 | disposition home or self-care (01) ==
LOC: ER 11:39
DX: I11.0 Hypertensive heart disease with heart failure (principal); I50.9 Heart failure, unspecified; R06.02 Shortness of breath; I48.91 Unspecified atrial fibrillation; R51 Headache; R53.83 Other fatigue; Z95.811 Presence of heart assist device; R53.1 Weakness; Z95.2 Presence of prosthetic heart valve
CPT/HCPCS: 93005; 99285; 96361; 96374; 96375; 36415; 82553; 82550; 85025; 85610; 80053; 84484; 83880; 71046; 70450; 93010; S0119; J0780; S0183; J2405; J7030